=== PATIENT | female | born 1985 | race Hispanic/Latino ===

== ENCOUNTER → 2018-03-30 | Outpatient (CLI) | payer BC ==
--- NOTE | 2018-03-31 08:20 | Diagnostic Imaging Report ---
#[id number] - [facility] : 03/30/2018 No prior exams were available for comparison. Color flow and real-time ultrasound were performed on the right breast with scanning in all four quadrants, retroareolar region and the right axilla. -There is a 5 x 6 x 3 mm cyst at 1 o'clock 1 cm from the nipple. IMPRESSION: BENIGN There is no sonographic evidence of malignancy. A 5 year screening mammogram is recommended. Keyur Veras Jr., D.O. cw/:03/30/2018 10:57:06 Lead Pressman [employer]: DASHAWN GUNN, [facility] letter sent: Normal Exam Ultrasound BI-RADS: 2 Benign
--- NOTE | 2018-03-31 08:20 | Diagnostic Imaging Report ---
#[id number] - [facility] ULTRASOUND OF THE LEFT BREAST : 03/30/2018 No prior exams were available for comparison. Color flow and real-time ultrasound were performed on the left breast with scanning in all four quadrants, retroareolar region and the right axilla. -At 7 o'clock 1 cm from the nipple there is a small simple cyst measuring 2 x 2 x 2 mm. -At 10 o'clock 1 cm from the nipple is a septated cyst with composite measurement of 10 x 4 x 9 mm. IMPRESSION: BENIGN There is no sonographic evidence of malignancy. A 5 year screening mammogram is recommended. Keyur Veras Jr., D.O. cw/:03/30/2018 11:06:13 Road Patcher: DASHAWN GUNN, [facility] letter sent: Normal Exam Ultrasound BI-RADS: 2 Benign
== END ==
LOC: US 08:34
PROVIDERS: ATTEND Surgery
DX: N60.12 Diffuse cystic mastopathy of left breast (principal); N60.11 Diffuse cystic mastopathy of right breast

== ENCOUNTER → 2019-09-24 | Outpatient (CLI) | payer BC | LOC: MAMMO 09:18 | PROVIDERS: ATTEND Obstetrics & Gynecology | DX: Z12.31 Encounter for screening mammogram for malignant neoplasm of breast (principal) | CPT/HCPCS: 77067 ==

== ENCOUNTER 2020-08-22 10:04 | Inpatient (IN) | payer BC ==
[2020-08-19 15:36] LABS: BASOPHILS % 0.3 % (0.0-1.0); EOSINOPHILS # (AUTO) 0.1 (0.0-0.4); EOSINOPHILS % 1.6 % (0.0-6.0); HEMATOCRIT 36.8 % (34.2-44.1); HEMOGLOBIN 12.4 g/dL (12.0-16.0); LYMPHOCYTES # (AUTO) 1.7 (1.0-3.2); LYMPHOCYTES % 26.4 % (18.0-39.1); MEAN CORPUSCULAR HEMOGLOBIN 28.9 pg (28-32); MEAN CORPUSCULAR HGB CONC 33.7 g/dL (31-35); MEAN CORPUSCULAR VOLUME 85.8 fL (81-99); MONOCYTES # (AUTO) 0.4 (0.2-0.8); MONOCYTES % 6.6 % (4.4-11.3); NEUTROPHILS # (AUTO) 4.1 (2.1-6.9); NEUTROPHILS % 64.9 % (38.7-80.0); PLATELET COUNT 250 x10e3/uL (140-360); RED BLOOD COUNT 4.29 x10e6/uL (3.6-5.1); RED CELL DISTRIBUTION WIDTH 12.2 % (11.7-14.4)
[2020-08-19 15:38] LABS: CLARITY,URINE CLEAR (CLEAR); COLOR,URINE YELLOW (YELLOW)
[2020-08-19 15:39] LABS: BILIRUBIN,URINE NEGATIVE (NEGATIVE); KETONES,URINE NEGATIVE (NEGATIVE); LEUKOCYTE ESTERASE ,URINE NEGATIVE (NEGATIVE); NITRITE,URINE NEGATIVE (NEGATIVE); PROTEIN,URINE DIPSTICK NEGATIVE (NEGATIVE); URINE UROBILINOGEN 0.2 mg/dL (0.2 - 1)
[2020-08-19 15:50] LABS: ANION GAP 12.4 mmol/L (8-16); BLOOD UREA NITROGEN 12 mg/dL (7-26); BUN/CREATININE RATIO 14 (6-25); CALCIUM 8.9 mg/dL (8.4-10.2); CARBON DIOXIDE 28 mmol/L (22-29); CHLORIDE 104 mmol/L (98-107); CREATININE, SERUM 0.87 mg/dL (0.57-1.11); EST GLOMERULAR FILTRATION RATE > 60 ML/MIN (60-); GLUCOSE 97 mg/dL (74-118); POTASSIUM 3.4 mmol/L (3.5-5.1); SODIUM 141 mmol/L (136-145)
[~2020-08-22] VITALS: Ht 160 cm; Wt 84.4 kg
[2020-08-22] MEDS ORDERED: CEFAZOLIN SOD 1 GM/NS 50ML 100 ML IV ONE (10:48)
[2020-08-22] MEDS ORDERED: ACETAMINOPHEN 325 MG/10 ML UDC ONE (11:45)
[2020-08-22] MEDS ORDERED: ACETAMINOPHEN 325 MG TAB ONE (11:46)
[2020-08-22] MEDS ORDERED: LIDOCAINE 1% W/EPINEPHRINE 20 ML VIAL ONE (12:24)
[2020-08-22] MEDS ORDERED: BUPIVACAINE 0.25% 30ML SDV INJ ONE (12:25)
[2020-08-22] MEDS ORDERED: SEVOFLURANE INHAL SOLN 250 ML PEN BTL ONE (12:38)
[2020-08-22] MEDS ORDERED: ONDANSETRON HCL INJ 2MG/ML 2ML 2 MG/ML VIAL ONE (12:38)
[2020-08-22] MEDS ORDERED: GLYCOPYRROLATE INJ 0.2 MG/ML VIAL ONE (12:38)
[2020-08-22] MEDS ORDERED: PROPOFOL IV EMULSION 10 MG/ML 20 ML VIAL ONE (12:38)
[2020-08-22] MEDS ORDERED: LIDOCAINE HCL 2% LOCAL INJ 5 ML SDV VIAL INJ ONE (12:38)
[2020-08-22] MEDS ORDERED: ROCURONIUM BROMIDE 10 MG/ML 5ML VIAL IV ONE (12:38)
[2020-08-22] MEDS ORDERED: NEOSTIGMINE 1 MG/ML 10ML VIAL ONE (12:38)
[2020-08-22] MEDS ORDERED: DEXAMETHASONE SOD PHOS INJ 4 MG/ML VIAL ONE (12:38)
[2020-08-22] MEDS ORDERED: MIDAZOLAM HCL 2 MG/2 ML VIAL ONE (13:43)
[2020-08-22] MEDS ORDERED: FENTANYL CITRATE/PF 100MCG/2 ML INJ ONE ×2 (13:43→19:23)
[2020-08-22] MEDS ORDERED: INDIGOTINDISULFONATE SODIUM 8 MG/ML AMP IJ ONE (16:46)
[2020-08-22] MEDS ORDERED: IOPAMIDOL 300MG/ML 50ML INFUS..BTL IV ONE (17:08)
[2020-08-22] MEDS ORDERED: ONDANSETRON HCL INJ 2MG/ML 2ML 2 MG/ML VIAL IV PRN (18:15)
[2020-08-22] MEDS ORDERED: BISACODYL 10 MG SUPP PR PRN (18:15)
[2020-08-22] MEDS ORDERED: MORPHINE SULFATE 2 MG/ML SYR 1ML IV PRN (18:15)
[2020-08-22] MEDS ORDERED: DIPHENHYDRAMINE HCL 25 MG CAP PO PRN (18:15)
[2020-08-22] MEDS ORDERED: ACETAMINOPHEN 325 MG TAB PO PRN (18:15)
[2020-08-22] MEDS ORDERED: DOCUSATE SODIUM 100 MG CAP PO PRN (18:15)
[2020-08-22] MEDS ORDERED: CEFAZOLIN SOD 2 GM/D5W 50ML 50 ML IV SCH (20:00)
[2020-08-22 20:21] VITALS: BP 125/60
--- NOTE | 2020-08-22 20:21 | NUR ---
Received patient from recovery via stretcher in stable condition, alert and oriented, respirations even and unlabored on room air, no s/s of distress at this time. 3 lap sites to abdomen CDI. Camarena catheter patent and draining clear blue urine to gravity. Bed locked and in lowest position, side rails upx2, call light placed within reach. Patient instructed to call for assistance if needed, verbalized understanding. All safety measures in place.
[2020-08-22 20:36] VITALS: BP 125/60
--- NOTE | 2020-08-22 20:46 | NUR ---
Spoke to Dr. Louis and verified orders to give 30mg Toradol every 6 hours. Per MD patient can have clear liquids tonight and will resume regular diet for breakfast.
[2020-08-22] MEDS: KETOROLAC TROMETHAMINE 30 MG/ML VIAL IV SCH (21:11)
[2020-08-22] MEDS: SIMETHICONE 80 MG CHEW PO SCH (21:34)
[2020-08-22] MEDS: D5.45%NS/KCL 20MEQ 1,000 ML IV SCH (21:49)
[2020-08-22] MEDS: CEFAZOLIN SOD 1 GM/NS 50ML 100 ML IV SCH (21:53)
[2020-08-22] MEDS ORDERED: SODIUM CHLORIDE 0.9% IV SCH (22:00)
[2020-08-22] MEDS ORDERED: CEFAZOLIN SOD 1 GM VIAL IV SCH (22:00)
[2020-08-22] MEDS ORDERED: CEFAZOLIN SOD IV SCH (22:00)
[2020-08-22 22:14] VITALS: BP 125/60
[2020-08-23] VITALS: BP 134/71
--- NOTE | 2020-08-23 01:22 | Operative Report ---
DATE OF PROCEDURE: 08/22/2020 SURGEON: Quincy Louis MD ADDENDUM: Dr. Dutton assisted with retraction, hemostasis, visualization, suturing, irrigation, and suctioning. MD GAMAL Guerrier/MODL /[id number]
--- NOTE | 2020-08-23 01:42 | Operative Report ---
DATE OF PROCEDURE: 08/22/2020 SURGEON: Quincy Louis MD PREOPERATIVE DIAGNOSES: Large fibroid uterus, abdominopelvic pain, and urinary frequency. POSTOPERATIVE DIAGNOSES: Large fibroid uterus, abdominopelvic pain, urinary frequency, and ureteral injury. TITLE OF THE PROCEDURE: Total laparoscopic hysterectomy, bilateral salpingectomy. EL TEACHER: Malik Dutton MD, and then CNR with right stent placement by Dr. Foster. ANESTHESIA: General with Dr. Duran. Nicholas, logging assistant. Leon, logging assistant. INDICATIONS FOR OPERATION: The patient is a 34-year-old 4, para 3-0-1-3 with last menstrual period December 28, [address] String not accessible secondary to large fibroid uterus. The patient is here for total laparoscopic hysterectomy, bilateral salpingectomy with possible abdominal hysterectomy due to large fibroid uterus with abdominal and pelvic pain and urinary frequency. She has been on Lupron since March of 2020 and her uterus has shrunk from 20-week size down to 14- week size, but there is a 9-10 cm right lower uterine segment fibroid compressing on the right pelvic sidewall and after shrinkage it appears to be very mobile. She is therefore taken to the operating room for total laparoscopic hysterectomy, bilateral salpingectomy at this time. FINDINGS OF SURGERY: The uterus was 12-week size with a 9-10 cm myoma on the right side of the uterus coming off the lower uterine segment extending to the sidewall and attached to the right pelvic sidewall. There were normal tubes and ovaries. After the surgery and cystoscopy was done, no urine output was noted on the right side. Dr. Foster was consulted and he placed a ureteral stent successfully, which will be planned to be left in for 6 weeks and then re-evaluated for healing. DESCRIPTION OF PROCEDURE: The patient was taken operating room, placed on the table in supine position. General anesthesia was administered. The patient was then placed in the lithotomy position. The perineum was prepared and draped in usual sterile manner as was the abdomen. Pelvic exam revealed a 12 week size uterus, anteverted, and nodular with an 8-10 cm mobile fibroid of the right lower quadrant of the right adnexa. A Camarena catheter was placed in the bladder for constant drainage. Then, a weighted speculum was placed in a posterior vaginal wall with aid of the right angle retractor. The anterior lip of the cervix was grasped with single-tooth tenaculum and then the VCare cup was placed over the cervix. A large size cup was placed and the balloon was blown up to 8 mL of the air. There was good movement of the manipulator and at this point, the manipulator of the VCare cup was tightened into place. At this point, the cloth doubling machine operator changed gloves and we proceeded to laparoscopy. A small incision was made just superior to the umbilicus in the midline. The Veress needle was inserted through this incision into the peritoneal cavity. Pneumoperitoneum was created by insufflation of 2.5 L of carbon dioxide gas and a filling pressure of 8-10 mmHg. The Veress needle was removed and then using direct visualization, a 5 mm trocar was placed through the incision into the peritoneal cavity. With confirmation of the peritoneal cavity entered, a second trocar was placed in the left lower quadrant a 10 cm trocar under direct visualization by laparoscopy, a third trocar was placed in the right lower quadrant a 7 mm trocar. At this point, we examined the uterus and the fibroid and the sidewall was very free and clear on the left. On the right side, the fibroid was apparently attached to the sidewall. It was felt that an attempt should be made to proceed with laparoscopic hysterectomy and first on the left side, we the tube from the ovary by placing the ligasure over the mesosalpinx, clamping, coagulating and cutting and then we further clamped along the mesosalpinx and then the uteroovarian ligament. These were clamped, coagulated, and cut and then we proceeded to clamp the left round ligament, coagulated and cut it and then a leaf was made in the anterior peritoneum and after multiple steps to coagulate and cut the bladder, it was dissected away from the uterus on the left side. We then were able to visualize the left uterine vessels and skeletonized them. We then coagulated them multiple times and then we were able to dissect them away and then we were able to dissect down to the uterosacral ligament and even cut to find the VCare cup. At this point, attention was then turned to the right side. The tube was from the ovary. Using the LigaSure instrument on the mesosalpinx clamping, coagulating and cutting until the tube was free from the ovary and then the uteroovarian ligament was clamped, coagulated, and cut and then we encountered the fibroid, which was about as large as the uterus itself. It was attached to the pelvic sidewall, but there did appear to be some distance between the sidewall itself and the actual fibroid. There were some fibrous adhesions attaching to the sidewall. At this point, we injected dilute Pitressin into the fibroid and tried to shell it out, first by coagulating and creating layers and in attempting to shell it out, the fibroid was too soft to shell out and therefore we started the dissection on the right side with the mass as close to the fibroid as possible using the LigaSure instrument, coagulating and cutting and freeing the mass from the pelvic sidewall. We then went ahead and were able to visualize, clamp, coagulate, and then cut the uterine vessels on the right side, after we had dissected the anterior peritoneum down to skeletonize the uterine vessels. Once these were done, we went back to the left side and used the L-hook to open up the vaginal cuff on the left, cutting along the VCare cup, and then once it was free on the left side, we were able to also perform this on the right side and cutting it away and since the fibroid was now free of any attachments, we were able to easily separate it out and then we placed a tenaculum on the cervix to pull it out and then with some traction and a small amount of morcellation we were able to remove the uterus and the fibroid in one piece with the tubes, but leaving the ovaries behind. We then proceeded to close the vaginal cuff using [id number] stitches of Vicryl suture using the laparoscopic suture device. Once the vaginal cuff was closed, we proceeded to irrigate and suction. There were a few small bleeders on the right side, which were coagulated with the LigaSure instrument. We then irrigated again because the vaginal manipulation that had to be done to remove the uterus and send it to Pathology. Once this was completed, we proceeded to cystoscopy. Cysto was performed and the ureteral jet on the left was easily visualized with multiple times urine flow noted, but on the right side ureteral jet was not noted. After 15 minutes of waiting, we consulted Urology and he placed a stent in the left ureter and injected dye and we were able to see all the way up to the kidney on the left with good flow. Then he was able to place the stent on the right. However, there was a small interruption of flow, but he was able to place the stent into the ureter all the way up and he left the stent in on that side for healing purposes. Please see his operative report for details. At this point, the ureter was successfully stented, with the stent successfully passed. The cloth doubling machine operator changed gloves and proceeded to close the abdomen. All the instruments were removed from the abdomen. The skin incisions were closed with inverted stitches of 4-0 Monocryl suture thus completing the procedure. The only complication noted was ureteral injury with Dr. Foster consulted and ureteral stent successfully passed. The patient tolerated the procedure well and was transferred from the operating room to recovery room in stable condition. Estimated blood loss was 100 mL. MD GAMAL Guerrier/DIGNA /[id number] SMITH
--- NOTE | 2020-08-23 02:02 | Operative Report ---
DATE OF PROCEDURE: 08/22/2020 SURGEON: Nilay Foster MD PREOPERATIVE DIAGNOSIS: Ureteral injury suspected. POSTOPERATIVE DIAGNOSES: 1. Right ureteral injury. 2. Right hydroureteronephrosis. OPERATIONS PERFORMED: 1. Cystourethroscopy with bilateral ureteral catheterization and retrograde ureteropyelography (separate procedure performed to evaluate for ureteral entry). 2. Interpretation of retrograde ureteropyelography. 3. Supervision of fluoroscopy, no radiologist present. 4. Cystourethroscopy with insertion of right-sided indwelling ureteral stent (separate procedure performed to relieve the hydronephrosis). ANESTHESIA: General. COMPLICATIONS: None. CLINICAL SUMMARY: Please refer to consultation dictation. PROCEDURE IN DETAIL: Informed consent was verified related. It is related to the gynecological surgery. No urological informed consent was required for this emergency intervention. The 22.5-[place]an cystourethroscopy sheath was inserted in the patient's urethra and bladder was drained. Panendoscopy revealed no suspicious mucosal lesions. Trabeculations were noted. Blue efflux could be seen from the left ureteral orifice and no efflux was seen from the right ureteral orifice. An open-ended ureteral catheter was inserted into the left ureter and retrograde ureteropyelography was performed. The open-ended ureteral catheter was then abutted into the right ureteral orifice. Retrograde ureteropyelograms were performed. A guidewire was then negotiated into the right ureter and the right operating collecting system with cystoscopic and fluoroscopic guidance, a right-sided indwelling ureteral stent was then placed. It was coiled proximally somewhere as well as the patient's bladder, retaining suture was removed. Interpretation of retrograde ureteropyelography contrast was instilled in retrograde fashion bilaterally. Retrograde study is limited by the fact that the patient was positioned in such a way that the post of the bed was interfering access of the fluoroscopy machine. We did opacify the left ureter and noted that it was uninjured distally and then no hydronephrosis. The distal right ureter appeared to have a narrowing. Nevertheless, there was no extravasation. There was no obvious suspicious lesion proximal to this area. There was significant ureterectasis. The stent appeared to be in good position following the conclusion of the Gynecologic procedure and there was excellent drainage from both of her collecting systems at the end of the case. It should be noted that we then negotiated the open-ended catheter into the upper right-sided collecting system. A jet of blue efflux was obtained indicating that were both within the collecting system and that there was significant hydronephrosis present. A 20-[place]an Camarena catheter was placed. It was irrigated to and fro to ensure it worked properly. The case was then turned over back to the Gynecology Service in order to complete their procedure. Plan will be to follow the patient on a long-term basis in approximately 6-8 weeks, we will plan on returning the patient to the operating room for cystoscopy with removal of stent and the right ureteroscopy. At that point in time, we will determine whether the narrowing is a permanent condition that will require more intervention or rather it really involved a temporary situation immediately relating to the surgery. Nevertheless, ongoing urologic followup is a must. Nilay Foster MD [place]/MODL /[id number] cc: Mychal Romo MD
[2020-08-23] MEDS: KETOROLAC TROMETHAMINE 30 MG/ML VIAL IV SCH ×3 (02:05→13:37)
[2020-08-23] MEDS: D5.45%NS/KCL 20MEQ 1,000 ML IV SCH ×2 (02:06→06:36)
--- NOTE | 2020-08-23 03:02 | Consultation ---
DATE OF CONSULTATION: 08/22/2020 Urology Consultation REASON FOR CONSULTATION: Possible right ureteral injury. HISTORY OF PRESENT ILLNESS: Yin Mujica is a 34-year-old woman, who had a gynecological issue. The patient was found to have large fibroid uterus. This large mass pushing on her bladder caused urinary frequency and urgency. The patient was placed on Lupron in order to shrink her fibroids and then today was taken to the operating room by the Gynecology Service for a laparoscopic hysterectomy. Following the procedure, cystoscopy performed by the dredge master with the laparoscope. Efflux was noted from the left ureter, but no efflux was noted from the right ureter. Urological interoperative consultation was subsequently sought. All the information was obtained from discussion with the patient's dredge master and review of the patient's chart. PAST MEDICAL AND PAST SURGICAL HISTORY: Unremarkable. ALLERGIES: REFER TO THE MAR. MEDICATIONS: Refer to the MAR. SOCIAL HISTORY: The patient apparently denies smoking, alcohol, or drug use. REVIEW OF SYSTEMS: As discussed above in history of present illness and past medical history, otherwise negative for all the systems. PHYSICAL EXAMINATION: GENERAL: Healthy woman, apparently under anesthesia. VITAL SIGNS: She is afebrile. Vital signs are stable. ABDOMEN: Obese. She has several laparoscopic ports in place. GENITOURINARY: Normal external female genitalia. For the remaining physical examination systems, please refer to admission history and physical. LABORATORY STUDIES: Reviewed. ASSESSMENT: 1. Overactive bladder. 2. Urinary frequency. 3. Urinary urgency. 4. Possible right ureteral injury. PLAN: I will perform cystoscopy and retrograde to determine the next plan of urological care. Nilay Foster MD OH/MODL /[id number] cc: Mychal Romo MD
[2020-08-23 04:00] VITALS: BP_SYST 108; BP_SYST 130; BP_DIAS 61; BP_DIAS 83
[2020-08-23] MEDS ORDERED: CEFAZOLIN SOD 2 GM/D5W 50ML 50 ML IV SCH ×3 (04:00→20:00)
[2020-08-23 05:54] LABS: BASOPHILS % 0.1 % (0.0-1.0); HEMATOCRIT 30.5 % (34.2-44.1); HEMOGLOBIN 10.3 g/dL (12.0-16.0); LYMPHOCYTES # (AUTO) 1.3 (1.0-3.2); LYMPHOCYTES % 17.9 % (18.0-39.1); MEAN CORPUSCULAR HGB CONC 33.8 g/dL (31-35); MEAN CORPUSCULAR VOLUME 85.9 fL (81-99); MONOCYTES # (AUTO) 0.6 (0.2-0.8); MONOCYTES % 7.8 % (4.4-11.3); NEUTROPHILS # (AUTO) 5.4 (2.1-6.9); NEUTROPHILS % 73.9 % (38.7-80.0); PLATELET COUNT 226 x10e3/uL (140-360); RED BLOOD COUNT 3.55 x10e6/uL (3.6-5.1); RED CELL DISTRIBUTION WIDTH 12.3 % (11.7-14.4)
[2020-08-23] MEDS: CEFAZOLIN SOD 1 GM/NS 50ML 100 ML IV SCH (05:56)
[2020-08-23 06:20] LABS: ANION GAP 10.5 mmol/L (8-16); BLOOD UREA NITROGEN 8 mg/dL (7-26); BUN/CREATININE RATIO 12 (6-25); CALCIUM 8.5 mg/dL (8.4-10.2); CARBON DIOXIDE 27 mmol/L (22-29); CHLORIDE 107 mmol/L (98-107); CREATININE, SERUM 0.66 mg/dL (0.57-1.11); EST GLOMERULAR FILTRATION RATE > 60 ML/MIN (60-); GLUCOSE 128 mg/dL (74-118); POTASSIUM 4.5 mmol/L (3.5-5.1); SODIUM 140 mmol/L (136-145)
--- NOTE | 2020-08-23 07:02 | NUR ---
Bedside report given to oncoming nurse. Patient awake and resting in bed, no s/s of distress at this time. All safety measures in place.
[2020-08-23 08:00] VITALS: BP 115/76
[2020-08-23] MEDS: SIMETHICONE 80 MG CHEW PO SCH ×3 (08:12→17:09)
[2020-08-23 09:07] VITALS: BP 115/76
--- NOTE | 2020-08-23 13:57 | NUR ---
Patient morton removed per Dr. Foster. Patient had 12cc removed before pulling morton. No other issues at this time. Awaiting urination post morton removal. Addendum: 08/23/20 at 1713 by Colette Hicks RN Patient voided 400cc in the toilet.
[2020-08-23 14:28] VITALS: BP 129/73
[2020-08-23] MEDS ORDERED: TYLENOL # 31 EA PO (16:29)
[2020-08-23] MEDS ORDERED: LEVOFLOXACIN250 MG PO (16:31)
[2020-08-23] MEDS ORDERED: MOTRIN200 MG PO (16:31)
[2020-08-23 17:39] VITALS: BP 126/89
--- NOTE | 2020-08-23 17:40 | NUR ---
Patient received discharge order from Dr. Foster and Dr. Louis. Patient had morton removed and urinated in the toilet. Patient had IV removed at 1730 and covered with a C/D/I dressing. Patient was given discharge instructions, prescriptions, and education. Patient verbalized understanding. Awaiting arrival for pickup. Addendum: 08/23/20 at 1754 by Colette Hicks RN Patient wheeled to car at 1753. Patient had no other issues or complaints at this time.
== END 2020-08-23 17:53 | disposition home or self-care (01) | DRG 742 ==
LOC: OR 10:04 → MED/SURG 20:08
PROVIDERS: ADMIT Obstetrics & Gynecology; ATTEND Obstetrics & Gynecology
PROC: 0T768DZ Dilation of Right Ureter with Intraluminal Device, Via Natural or Artificial Opening Endoscopic (ICD-10-PCS; 2020-08-22)
PROC: 0UT94ZZ Resection of Uterus, Percutaneous Endoscopic Approach (ICD-10-PCS; principal; 2020-08-22 12:30)
PROC: 0UT74ZZ Resection of Bilateral Fallopian Tubes, Percutaneous Endoscopic Approach (ICD-10-PCS; 2020-08-22 12:30)
DX: D25.9 Leiomyoma of uterus, unspecified (principal); N13.30 Unspecified hydronephrosis; N32.81 Overactive bladder; R35.0 Frequency of micturition; R39.15 Urgency of urination; E66.9 Obesity, unspecified; Z68.33 Body mass index [BMI] 33.0-33.9, adult; D64.9 Anemia, unspecified; Z11.59 Encounter for screening for other viral diseases
CPT/HCPCS: 36415; 74420; 80048; 81003; 84702; 85025; 86850; 86900; 88307; 96361; C1758; C1769; C2617; J0690; J1100; J1885; J2001; J2250; J2405; J2710; J3010; U0002

== ENCOUNTER → 2020-10-10 | Day surgery (SDC) | payer BC ==
[2020-10-07 16:03] LABS: BASOPHILS % 0.9 % (0.0-1.0); EOSINOPHILS # (AUTO) 0.2 (0.0-0.4); EOSINOPHILS % 3.3 % (0.0-6.0); HEMATOCRIT 36.3 % (34.2-44.1); HEMOGLOBIN 12.3 g/dL (12.0-16.0); LYMPHOCYTES # (AUTO) 1.1 (1.0-3.2); LYMPHOCYTES % 23.6 % (18.0-39.1); MEAN CORPUSCULAR HEMOGLOBIN 28.8 pg (28-32); MEAN CORPUSCULAR HGB CONC 33.9 g/dL (31-35); MONOCYTES # (AUTO) 0.4 (0.2-0.8); MONOCYTES % 7.9 % (4.4-11.3); NEUTROPHILS # (AUTO) 2.9 (2.1-6.9); NEUTROPHILS % 64.1 % (38.7-80.0); PLATELET COUNT 282 x10e3/uL (140-360); RED BLOOD COUNT 4.27 x10e6/uL (3.6-5.1); RED CELL DISTRIBUTION WIDTH 12.2 % (11.7-14.4)
[2020-10-07 16:21] LABS: BLOOD UREA NITROGEN 13 mg/dL (7-26); BUN/CREATININE RATIO 18 (6-25); CARBON DIOXIDE 29 mmol/L (22-29); CHLORIDE 105 mmol/L (98-107); CREATININE, SERUM 0.73 mg/dL (0.57-1.11); EST GLOMERULAR FILTRATION RATE > 60 ML/MIN (60-); GLUCOSE 116 mg/dL (74-118); SODIUM 141 mmol/L (136-145)
[~2020-10-10] MED LIST: AMOXICILLIN250 MG PO; B&O 60MG R/S 60 MG SUPP PR ONE; CEFTRIAXONE SOD 1 GM/NS 50 ML 50 ML IV ONE; GENTAMICIN 80MG/NS 100 ML 100 ML IV ONE; IBUPROFEN200 MG PO; IOPAMIDOL 300MG/ML 50ML INFUS..BTL IV ONE; LEVOFLOXACIN250 MG PO; MOTRIN200 MG PO; OXYBUTYNIN CHLOR5 M1 PO; TYLENOL # 31 EA PO
[2020-10-10 15:35] VITALS: BP 125/75
--- NOTE | 2020-10-11 15:33 | Operative Report ---
DATE OF PROCEDURE: 10/10/2020 SURGEON: Nilay Foster MD PREOPERATIVE DIAGNOSES: 1. Right ureteral obstruction. 2. Right hydronephrosis. 3. Right indwelling ureteral stent. POSTOPERATIVE DIAGNOSES: 1. Right proximal ureteral stricture and tortuosity. 2. History of right distal ureteral obstruction, which seems to have resolved. 3. Right indwelling ureteral stent. 4. Hydronephrosis due to stricture. 5. Grade 1 cystocele. 6. Urethral hypermobility. OPERATIONS PERFORMED: 1. Cystourethroscopy with complicated removal of right indwelling ureteral stent (separate procedure was performed for the diagnosis of stents). 2. Right ureteroscopy with dilation of ureteral stricture (separate procedure was performed for the proximal ureter stricture). 3. Urological services with supervision and interpretation of stricture dilation, no radiologist present. 4. Cystourethroscopy with insertion of right indwelling ureteral stent (separate procedure performed to relieve the hydronephrosis). 5. Interpretation of retrograde ureteropyelography. No radiologist present. 6. Supervision of fluoroscopy, no radiologist present. 7. Pelvic examination under anesthesia. ANESTHESIA: General. COMPLICATIONS: None. CLINICAL SUMMARY: Yin Mujica is a 34-year-old woman who underwent a gynecological procedure. There was no Indigo carmine noted to be effluxing to the right ureteral orifice postoperatively. The retrograde pyelograms revealed the obstruction of the distal ureter. We were able to negotiate the stent and have it placed to relieve this blockage. The patient is brought to the operating room today to remove her stent and evaluate for any additional issues. She is aware of the risks of bleeding, infection, injury to adjacent structures, need for additional procedures, and elected to proceed. OPERATIVE PROCEDURE IN DETAIL: Informed consent was verified. Yin Mujica was properly identified, taken to the operating room, placed on the cystoscopy table in supine position. Anesthesia was uneventfully begun. The patient was then carefully gently repositioned in dorsal lithotomy position. All pressure points were padded. Her genitalia were prepared and draped in usual sterile fashion. The cystoscope sheath with the visual obturator in place was atraumatically inserted into the patient's distal urethra and the bladder was drained. Panendoscopy of the urinary bladder revealed no suspicious lesions, no tumors, no stones, and no diverticula. Normally positioned and configured ureteral orifices were identified. They were stent emerging from the right ureteral orifice. The distal loop of the stent was actually present over the left side of the body indicating some distal stent migration. A guidewire was then placed alongside the stent and guided to the level of the patient's kidney. The stent was then grasped completely, removed and discarded. A semi-rigid ureteroscope was placed alongside the guidewire into the right ureter. In the distal ureter, there were no strictures, there were no tours, no stones, and no diverticula noted. Retrograde pyelograms noted a significant ureteral tortuosity in the proximal ureter, proximal of the middle portion of proximal third of right ureter. That tortuosity was causing hydroureteronephrosis. There was an eschar . We negotiated this a hydrophilic guidewire through this tortuous region. This allowed us to exchange that guidewire over to ZIP wire. We were all then able to negotiate a flexible ureteroscope via the aid of a secondary wire to this region. We noted tortuosity and stricturing as noted as well. As we negotiate the ureteroscope through the left the patient's kidney. We identified the patient's kidney suspicious, but there were no suspicious lesions and no stones. Over the guidewire, we placed a balloon dilator and dilated strictured portion to 18-K[place]anda in size and held the balloon at 4 atmospheres for approximately 5 minutes. We then deflated the balloon and fluoroscopic guidance, a right-sided indwelling ureteral stent was placed to hold the patient's renal pelvis as well as the patient's bladder. The distal loop of the stent was just outside the ureteral orifice. The patient's bladder was drained. The cystoscope was withdrawn. Pelvic examination under anesthesia revealed grade 1 cystocele. No rectocele. No abnormal palpable pelvic mass could be appreciated. There were no obvious pelvic lesions. The patient was then uneventfully reversed from anesthesia and taken to recovery room in stable condition. There were no complications for the procedure. She tolerated the procedure well. Exclusive postoperative instructions were given PLANS: Plans will be to return the patient to the operating room in about a month to remove the stent and reevaluate her ureter. I instructed her that she should follow up with us approximately prior to prepare for her surgery. MD MICHELLE Pa/DIGNA /[id number] cc: MD Quincy Araiza MD
== END | disposition home or self-care (01) ==
LOC: OR 12:13
PROVIDERS: ATTEND Urology
DX: N13.1 Hydronephrosis with ureteral stricture, not elsewhere classified (principal); Z46.6 Encounter for fitting and adjustment of urinary device; R39.15 Urgency of urination; R35.0 Frequency of micturition; R80.9 Proteinuria, unspecified; N81.10 Cystocele, unspecified; N36.41 Hypermobility of urethra; F41.9 Anxiety disorder, unspecified; Z01.812 Encounter for preprocedural laboratory examination; Z20.828 Contact with and (suspected) exposure to other viral communicable diseases
CPT/HCPCS: 36415; 52332; 52344; 74420; 80048; 85025; C1758; C1769; C2617; J0696; J1580; Q9967; U0002

== ENCOUNTER → 2021-01-02 | Outpatient (CLI) | payer BC ==
[~2021-01-02] MED LIST changes: -B&O 60MG R/S 60 MG SUPP PR ONE; -CEFTRIAXONE SOD 1 GM/NS 50 ML 50 ML IV ONE; -GENTAMICIN 80MG/NS 100 ML 100 ML IV ONE; -IOPAMIDOL 300MG/ML 50ML INFUS..BTL IV ONE
== END ==
LOC: US 13:10
PROVIDERS: ATTEND Urology
DX: N13.30 Unspecified hydronephrosis (principal)
CPT/HCPCS: 76770; 76857

== ENCOUNTER → 2021-12-18 | Outpatient (CLI) | payer BC ==
[~2021-12-18] MED LIST changes: +FUROSEMIDE INJ 10 MG/ML 4 ML VIAL ONE
== END ==
LOC: NM 07:26
PROVIDERS: ATTEND Urology
DX: N13.1 Hydronephrosis with ureteral stricture, not elsewhere classified (principal)
CPT/HCPCS: 74018; 76770; 76857; 78708; A9562; J1940